=== PATIENT | male | born 1995 | race African-American/Black ===

== ENCOUNTER 2020-06-20 15:18 | Emergency (ER) | payer SELFPAY ==
[~2020-06-20] VITALS: Ht 188 cm; Wt 99.8 kg
[2020-06-20 15:24] VITALS: BP 115/68; Ht 188 cm; Wt 99.8 kg
== END 2020-06-20 17:08 | disposition home or self-care (01) ==
LOC: ED 15:18
DX: R11.10 Vomiting, unspecified (principal); R19.7 Diarrhea, unspecified; J45.909 Unspecified asthma, uncomplicated; Z20.822 Contact with and (suspected) exposure to COVID-19; Z76.0 Encounter for issue of repeat prescription
CPT/HCPCS: U0003